=== PATIENT | female | born 1950 | race Caucasian/White ===

== ENCOUNTER 2022-07-27 20:59 | Inpatient (IN) | payer MEDICARE, OTHER ==
[~2022-07-27] VITALS: Ht 157.5 cm; Wt 83.5 kg
[~2022-07-27 20:59] MED LIST: ASCORBIC ACID500 MG PO; ASPIRIN EC81 MG PO; BENZONATATE200 MG PO; BUMEX1 MG PO; CALCIUM +D & M1 EACH PO; CLONIDINE HCL0.1 MG PO; COREG 6.25MG6.25 MG PO; COZAAR50 MG PO; FISH OIL 1,0001 EAC8 PO; HCTZ12.5 MG PO; ISOSORBIDE MONO60 MG PO; KLOR-CON M2020 MEQ PO; LASIX20 MG PO; MOVE FREE ULTR1 EAC1 PO; ONDANSETRON ODT8 MG PO; PHILLIPS' COLO1 EACH PO; POTASSIUM CHLO20 ME1 PO; RANEXA500 MG PO; SINGULAIR10 MG PO; WOMEN'S MULTI200 MCG PO; ZETIA10 MG PO; ZYPREXA 5MG TABL5 MG PO; ZYRTEC10 M3 PO
[2022-07-27 21:27] LABS: BASOPHIL 0.1 % (0-2); EOSINOPHIL 0 % (0-7); HCT 35.3 % (37.0-47.0); HGB 11.4 g/dl (12.5-16.0); LYMPHOCYTE 16.5 % (15-48); MCH 31.5 pg (25.0-31.0); MCHC 32.3 g/dL (32.0-36.0); MCV 97.5 fL (78.0-100.0); MONOCYTE 1.3 % (0-12); MPV 9.9 fL (6.0-9.5); NEUTROPHIL 81.5 % (41-80); NRBC 0; PLT 379 K/uL (150-400); RBC 3.62 M/uL (4.20-5.40); RDW 20.3 % (11.5-14.0); WBC 12.6 K/uL (4.0-10.5)
[2022-07-27 21:41] LABS: INR 0.95 (0.9-1.2); PROTHROMBIN TIME 12.4 SECONDS (11.9-13.9); PTT 23.1 SECONDS (24.9-34.6)
[2022-07-27 22:01] LABS: ALBUMIN 3.2 g/dL (3.4-5.0); ALKALINE PHOSHATASE 158 U/L (46-116); ALT 22 U/L (14-59); AST 16 U/L (15-37); BILIRUBIN - TOTAL 0.3 mg/dL (0.2-1.0); BUN 21 mg/dL (7-18); BUN/CREAT RATIO (CALC) 23.1 RATIO; CHLORIDE 100 mmol/L (98-107); CO2 (BICARBONATE) 22 mmol/L (21-32); CREATININE 0.91 mg/dL (0.51-0.95); GLOBULIN (CALCULATION) 4.2 g/dL; GLUCOSE 188 mg/dL (74-106); POTASSIUM 4.2 mmol/L (3.5-5.1); TOTAL PROTEIN 7.4 g/dL (6.4-8.2)
[2022-07-27 22:15] LABS: INFLUENZA A NAA NEGATIVE (NEGATIVE)
[2022-07-27 22:19] LABS: C-REACTIVE PROTEIN < 0.20 mg/dL (<=0.90)
[2022-07-27 22:25] LABS: CORONAVIRUS 2019 SARS-COV-2 POSITIVE (NEGATIVE)
[2022-07-27 23:47] LABS: BILIRUBIN NEGATIVE (NEGATIVE); BLOOD NEGATIVE Ery/uL (NEGATIVE); CLARITY CLEAR (CLEAR); COLOR YELLOW (YELLOW); GLUCOSE (U) NORMAL (NORMAL); LEUKOCYTES NEGATIVE Leu/uL (NEGATIVE); NITRITE NEGATIVE (NEGATIVE); PROTEIN NEGATIVE (NEGATIVE); SPECIFIC GRAVITY 1.015 (1.001-1.030); UROBILINOGEN 0.2 mg/dL (0.2-1.0); pH 5.5 (5.0-9.0)
[2022-07-28] MEDS ORDERED: COZAAR50 MG PO (05:17)
[2022-07-28] MEDS ORDERED: COREG 6.25MG6.25 MG PO (05:17)
[2022-07-28] MEDS ORDERED: ISOSORBIDE MONO60 MG PO (05:18)
[2022-07-28] MEDS ORDERED: RANEXA500 MG PO (05:18)
[2022-07-28] MEDS ORDERED: ZETIA10 MG PO (05:18)
[2022-07-28] MEDS ORDERED: BUMEX1 MG PO (05:19)
[2022-07-28] MEDS ORDERED: KLOR-CON M2020 MEQ PO (05:20)
[2022-07-28] MEDS ORDERED: DEXAMETHASONE 2M2 MG PO (05:20)
[2022-07-28] MEDS ORDERED: CALTRATE 600 +1 EAC1 PO (05:21)
[2022-07-28] MEDS ORDERED: ASPIRIN EC81 MG PO (05:21)
[2022-07-28] MEDS ORDERED: SINGULAIR10 MG PO (05:22)
[2022-07-28] MEDS ORDERED: DULCOLAX STOOL100 MG PO (05:23)
[2022-07-28] MEDS ORDERED: TRANSDERM-SCOP1 EACH TD (05:23)
[2022-07-28] MEDS ORDERED: LOVAZA1 GM PO (05:24)
[2022-07-28] MEDS ORDERED: ZYRTEC10 M3 PO (05:25)
[2022-07-28 05:48] LABS: BASOPHIL 0.1 % (0-2); EOSINOPHIL 0 % (0-7); HCT 32.8 % (37.0-47.0); HGB 10.6 g/dl (12.5-16.0); LYMPHOCYTE 4.7 % (15-48); MCH 31.2 pg (25.0-31.0); MCHC 32.3 g/dL (32.0-36.0); MCV 96.5 fL (78.0-100.0); MONOCYTE 2.3 % (0-12); MPV 10.2 fL (6.0-9.5); NRBC 0; PLT 273 K/uL (150-400); RDW 20.2 % (11.5-14.0)
[2022-07-28 05:52] LABS: NEUTROPHIL 91.5 % (41-80); WBC 27.1 K/uL (4.0-10.5)
[2022-07-28 06:09] LABS: ALBUMIN 2.8 g/dL (3.4-5.0); BILIRUBIN - TOTAL 0.3 mg/dL (0.2-1.0); BUN/CREAT RATIO (CALC) 27.1 RATIO; CREATININE 0.85 mg/dL (0.51-0.95); GLOBULIN (CALCULATION) 3.6 g/dL; POTASSIUM 4.4 mmol/L (3.5-5.1); TOTAL PROTEIN 6.4 g/dL (6.4-8.2)
[2022-07-28 09:24] LABS: BASOPHIL 0.2 % (0-2); EOSINOPHIL 0 % (0-7); HCT 38.1 % (37.0-47.0); HGB 12.4 g/dl (12.5-16.0); LYMPHOCYTE 3.3 % (15-48); MCH 31.7 pg (25.0-31.0); MCHC 32.5 g/dL (32.0-36.0); MCV 97.4 fL (78.0-100.0); MONOCYTE 0.6 % (0-12); MPV 9.9 fL (6.0-9.5); NEUTROPHIL 94.7 % (41-80); NRBC 0; PLT 291 K/uL (150-400); RBC 3.91 M/uL (4.20-5.40); RDW 20.4 % (11.5-14.0)
[2022-07-28 09:27] LABS: WBC 28.1 K/uL (4.0-10.5)
--- NOTE | 2022-07-28 13:11 | NUR ---
07/28 Ms. Rosa lives at home with her spouse. She has a rw, cane, 3in1, and S. Chair. [facility] is current and have been notified of admission. Please notify [facility] at [phone] if pt discharges over the weekend. PLease monitor for 02 needs.
[2022-07-29 05:43] LABS: BASOPHIL 0.1 % (0-2); EOSINOPHIL 0 % (0-7); HCT 26.2 % (37.0-47.0); HGB 8.7 g/dl (12.5-16.0); LYMPHOCYTE 5.6 % (15-48); MCH 31.5 pg (25.0-31.0); MCHC 33.2 g/dL (32.0-36.0); MCV 94.9 fL (78.0-100.0); MONOCYTE 0.4 % (0-12); MPV 10.6 fL (6.0-9.5); NEUTROPHIL 89.4 % (41-80); NRBC 0; PLT 179 K/uL (150-400); RBC 2.76 M/uL (4.20-5.40); RDW 20.3 % (11.5-14.0)
[2022-07-29 06:18] LABS: POTASSIUM 3.7 mmol/L (3.5-5.1)
[2022-07-29 11:41] LABS: C-REACTIVE PROTEIN > 18.00 mg/dL (<=0.90)
[2022-07-29 20:52] LABS: B. PERTUSSIS DNA NOT DETECTED (NOT DETECT); CHLAMYDOPHILA PNEUMON DNA PCR NOT DETECTED (NOT DETECT); CORONAVIRUS 229E NOT DETECTED (NOT DETECT); CORONAVIRUS HKU1 NOT DETECTED (NOT DETECT); CORONAVIRUS NL63 NOT DETECTED (NOT DETECT); CORONAVIRUS OC43 NOT DETECTED (NOT DETECT); HUMAN METAPNEUMO NOT DETECTED (NOT DETECT); INFLUENZA A NOT DETECTED (NOT DETECT); INFLUENZA A 2009 H1N1 NOT DETECTED (NOT DETECT); INFLUENZA A H1 NOT DETECTED (NOT DETECT); INFLUENZA A H3 NOT DETECTED (NOT DETECT); INFLUENZA B NOT DETECTED (NOT DETECT); MYCOPLASMA PNEUMONIAE NOT DETECTED (NOT DETECT); PARAINFLUENZA 1 NOT DETECTED (NOT DETECT); PARAINFLUENZA 2 NOT DETECTED (NOT DETECT); PARAINFLUENZA 3 NOT DETETED (NOT DETECT); PARAINFLUENZA 4 NOT DETECTED (NOT DETECT); RESPIRATORY SYNCYTIAL VIRUS NOT DETECTED (NOT DETECT)
[2022-07-29 20:53] LABS: CORONAVIRUS 2019 PCR DETECTED (NOT DETECTD)
[2022-07-30 04:42] LABS: BASOPHIL 0 % (0-2); EOSINOPHIL 0 % (0-7); HCT 25.8 % (37.0-47.0); HGB 8.6 g/dl (12.5-16.0); LYMPHOCYTE 2.3 % (15-48); MCH 31.4 pg (25.0-31.0); MCHC 33.3 g/dL (32.0-36.0); MCV 94.2 fL (78.0-100.0); MONOCYTE 0.2 % (0-12); MPV 11.2 fL (6.0-9.5); NEUTROPHIL 85.5 % (41-80); NRBC 0; PLT 142 K/uL (150-400); RBC 2.74 M/uL (4.20-5.40); RDW 19.8 % (11.5-14.0)
[2022-07-30 04:46] LABS: WBC 32.7 K/uL (4.0-10.5)
[2022-07-30 05:08] LABS: C-REACTIVE PROTEIN > 18.00 mg/dL (<=0.90); VANCOMYCIN, TROUGH 9 ug/mL (10-20)
[2022-07-30 08:54] LABS: CREATININE 0.79 mg/dL (0.51-0.95)
[2022-07-31 06:03] LABS: BASOPHIL 0 % (0-2); EOSINOPHIL 0.8 % (0-7); HGB 8.4 g/dl (12.5-16.0); LYMPHOCYTE 2.8 % (15-48); MCH 31.8 pg (25.0-31.0); MCHC 33.6 g/dL (32.0-36.0); MCV 94.7 fL (78.0-100.0); MONOCYTE 0.1 % (0-12); MPV 11.6 fL (6.0-9.5); NEUTROPHIL 80.1 % (41-80); NRBC 0; PLT 121 K/uL (150-400); RBC 2.64 M/uL (4.20-5.40); RDW 19.9 % (11.5-14.0)
[2022-07-31 07:16] LABS: BUN/CREAT RATIO (CALC) 29.6 RATIO; C-REACTIVE PROTEIN 14.4 mg/dL (<=0.90); CREATININE 0.81 mg/dL (0.51-0.95); POTASSIUM 4.3 mmol/L (3.5-5.1)
[2022-08-01 05:51] LABS: BASOPHIL 0.7 % (0-2); EOSINOPHIL 0.7 % (0-7); HCT 24.3 % (37.0-47.0); HGB 8.2 g/dl (12.5-16.0); LYMPHOCYTE 12.7 % (15-48); MCHC 33.7 g/dL (32.0-36.0); MCV 94.9 fL (78.0-100.0); MONOCYTE 0.3 % (0-12); MPV 10.8 fL (6.0-9.5); NEUTROPHIL 82.9 % (41-80); NRBC 0; PLT 116 K/uL (150-400); RBC 2.56 M/uL (4.20-5.40); RDW 19.6 % (11.5-14.0)
[2022-08-01 05:52] LABS: WBC 13.5 K/uL (4.0-10.5)
[2022-08-01 06:45] LABS: ALBUMIN 2.2 g/dL (3.4-5.0); BILIRUBIN - TOTAL 0.4 mg/dL (0.2-1.0); BUN/CREAT RATIO (CALC) 34.9 RATIO; C-REACTIVE PROTEIN 6.2 mg/dL (<=0.90); CREATININE 0.86 mg/dL (0.51-0.95); GLOBULIN (CALCULATION) 3.5 g/dL; POTASSIUM 4.1 mmol/L (3.5-5.1); TOTAL PROTEIN 5.7 g/dL (6.4-8.2)
[2022-08-02 05:29] LABS: HCT 25.3 % (37.0-47.0); HGB 8.5 g/dl (12.5-16.0); MCH 31.6 pg (25.0-31.0); MCHC 33.6 g/dL (32.0-36.0); MCV 94.1 fL (78.0-100.0); MPV 12.1 fL (6.0-9.5); RBC 2.69 M/uL (4.20-5.40); RDW 19.2 % (11.5-14.0); WBC 4.9 K/uL (4.0-10.5)
[2022-08-02 06:01] LABS: BUN/CREAT RATIO (CALC) 33.3 RATIO; CREATININE 0.9 mg/dL (0.51-0.95); POTASSIUM 4.2 mmol/L (3.5-5.1)
[2022-08-02] MEDS ORDERED: DEXAMETHASONE 2M2 MG PO (10:16)
[2022-08-02] MEDS ORDERED: LEVAQUIN750 MG PO (10:16)
[2022-08-02] MEDS ORDERED: FLORASTOR250 MG PO (10:16)
--- NOTE | 2022-08-03 05:11 | NUR ---
PT RESTED MOST OF THE NIGHT RESP EVEN AND UNLAOBORED, PT O2 SAT DROPPED TO 88 % AT THE BEING OF THE SHIFT AND PT C/O DIZZINESS, 02 AT 2L PLACED PER N/C, 92 %, PT NEEDS TO HAVE BM LAST WAS ABOUT 4 DAYS AGO, NO FURTHER COMPLAINTS NOTED. PT AAOX3 ABLE TO MAKE WANTS KNOWN, CALL LIN IN REACH, BED LOCKED AND IN LOWEST POSITION.
[2022-08-03 07:59] LABS: BUN/CREAT RATIO (CALC) 33.7 RATIO; CREATININE 0.92 mg/dL (0.51-0.95); POTASSIUM 4.6 mmol/L (3.5-5.1)
--- NOTE | 2022-08-03 14:48 | NUR ---
REMOVED PATIENTS MIDLINE. REVIEWED DISCHARGE INSTRUCTIONS WITH PATIENT WHO VERBALIZED UNDERSTANDING. PATIENT DISCHARGED HOME WITH HOME HEALTH.
--- NOTE | 2022-08-03 15:01 | NUR ---
08/03 [facility] is curretly following patient and were notified of discharge.
== END 2022-08-03 14:45 | disposition home or self-care (01) | DRG 871 ==
LOC: FER 20:59 → FTCU 07-28 02:22
PROVIDERS: Allergy & Immunology Allergy; Family Medicine; Nurse Practitioner; ADMIT Emergency Medicine
PROC: 3E03329 Introduction of Other Anti-infective into Peripheral Vein, Percutaneous Approach (ICD-10-PCS; 2022-07-27)
PROC: 8E0ZXY6 Isolation (ICD-10-PCS; 2022-07-28)
PROC: 5A09357 Assistance with Respiratory Ventilation, Less than 24 Consecutive Hours, Continuous Positive Airway Pressure (ICD-10-PCS; 2022-07-28)
PROC: 0T9B70Z Drainage of Bladder with Drainage Device, Via Natural or Artificial Opening (ICD-10-PCS; 2022-07-28)
PROC: B24BZZZ Ultrasonography of Heart with Aorta (ICD-10-PCS; 2022-07-29)
PROC: 3E0333Z Introduction of Anti-inflammatory into Peripheral Vein, Percutaneous Approach (ICD-10-PCS; 2022-07-29)
PROC: XW033E5 Introduction of Remdesivir Anti-infective into Peripheral Vein, Percutaneous Approach, New Technology Group 5 (ICD-10-PCS; principal; 2022-07-30)
PROC: 05HY33Z Insertion of Infusion Device into Upper Vein, Percutaneous Approach (ICD-10-PCS; 2022-07-30)
PROC: XW0DXM6 Introduction of Baricitinib into Mouth and Pharynx, External Approach, New Technology Group 6 (ICD-10-PCS; 2022-07-30)
DX: A41.9 Sepsis, unspecified organism (principal); I21.A1 Myocardial infarction type 2; U07.1 COVID-19; J12.82 Pneumonia due to coronavirus disease 2019; J15.9 Unspecified bacterial pneumonia; J96.01 Acute respiratory failure with hypoxia; I50.33 Acute on chronic diastolic (congestive) heart failure; I13.0 Hypertensive heart and chronic kidney disease with heart failure and stage 1 through stage 4 chronic kidney disease, or unspecified chronic kidney disease; Z66 Do not resuscitate; R65.20 Severe sepsis without septic shock; N18.2 Chronic kidney disease, stage 2 (mild); E66.9 Obesity, unspecified; C55 Malignant neoplasm of uterus, part unspecified; I27.21 Secondary pulmonary arterial hypertension; D64.9 Anemia, unspecified; I25.10 Atherosclerotic heart disease of native coronary artery without angina pectoris; I08.1 Rheumatic disorders of both mitral and tricuspid valves; D69.59 Other secondary thrombocytopenia; T45.1X5A Adverse effect of antineoplastic and immunosuppressive drugs, initial encounter; I95.2 Hypotension due to drugs; T50.1X5A Adverse effect of loop [high-ceiling] diuretics, initial encounter; Z90.710 Acquired absence of both cervix and uterus; Z82.49 Family history of ischemic heart disease and other diseases of the circulatory system; Z80.3 Family history of malignant neoplasm of breast; Z88.0 Allergy status to penicillin; Z88.8 Allergy status to other drugs, medicaments and biological substances; Z79.82 Long term (current) use of aspirin; Z79.899 Other long term (current) drug therapy; Z68.34 Body mass index [BMI] 34.0-34.9, adult; Z92.21 Personal history of antineoplastic chemotherapy; Z95.5 Presence of coronary angioplasty implant and graft
CPT/HCPCS: 36415; 36600; 71045; 71275; 80048; 80053; 80202; 81003; 82728; 82803; 83605; 83615; 83880; 84145; 84484; 85025; 85379; 85610; 85730; 86140; 87040; 87449; 93005; 94640; 94660; 94667; 94668; 94760; 94762; C1751; C9399; J0248; J0692; J1100; J1650; J1956; J3370; J7040; J7050; Q9967; U0002